=== PATIENT | male | born 1940 | race Caucasian/White ===

== ENCOUNTER 2021-01-24 18:50 | Inpatient (IN) | payer MEDICARE ==
[~2021-01-24 18:50] MED LIST: ASPIRIN81 MG PO; CRESTOR10 MG PO; FAMOTIDINE20 MG PO; IMDUR ER TAB 6060 MG PO; JANUVIA100 MG PO; JANUVIA50 MG PO; LEVEMIR100 UNIT/1 SC; LEVEMIR100 UNIT/1 SQ; LOPRESSOR 25 MG25 MG PO; LOPRESSOR 50 MG50 MG PO; NORVASC 5 MG TAB5 MG PO; PLAVIX 75 MG TA75 MG PO; SODIUM BICARBO650 M1 PO; TRAMADOL HCL50 MG PO; ZOFRAN ODT 4 MG4 MG PO
[2021-01-24 19:20] LABS: HEMOGLOBIN 14.1 gm/dl (14.0-17.5); RED BLOOD COUNT 4.79 M/UL (4.20-5.50); WHITE BLOOD COUNT 8.8 K/UL (4.5-11.0)
== END 2021-01-24 21:20 | disposition expired ==
LOC: ER1 18:50 → CDU 19:06
PROVIDERS: ADMIT Internal Medicine Cardiovascular Disease
PROC: 0BH17EZ Insertion of Endotracheal Airway into Trachea, Via Natural or Artificial Opening (ICD-10-PCS; principal; 2021-01-24)
PROC: 4A023N7 Measurement of Cardiac Sampling and Pressure, Left Heart, Percutaneous Approach (ICD-10-PCS; 2021-01-24)
PROC: B2111ZZ Fluoroscopy of Multiple Coronary Arteries using Low Osmolar Contrast (ICD-10-PCS; 2021-01-24)
PROC: 5A2204Z Restoration of Cardiac Rhythm, Single (ICD-10-PCS; 2021-01-24)
PROC: 5A1935Z Respiratory Ventilation, Less than 24 Consecutive Hours (ICD-10-PCS; 2021-01-24)
PROC: 3E033XZ Introduction of Vasopressor into Peripheral Vein, Percutaneous Approach (ICD-10-PCS; 2021-01-24)
DX: I21.09 ST elevation (STEMI) myocardial infarction involving other coronary artery of anterior wall (principal); J96.01 Acute respiratory failure with hypoxia; I50.21 Acute systolic (congestive) heart failure; I47.2 Ventricular tachycardia; N17.9 Acute kidney failure, unspecified; I46.2 Cardiac arrest due to underlying cardiac condition; R57.0 Cardiogenic shock; Z20.822 Contact with and (suspected) exposure to COVID-19; I11.0 Hypertensive heart disease with heart failure; E11.51 Type 2 diabetes mellitus with diabetic peripheral angiopathy without gangrene; I25.10 Atherosclerotic heart disease of native coronary artery without angina pectoris; R54 Age-related physical debility; F17.220 Nicotine dependence, chewing tobacco, uncomplicated; Z88.6 Allergy status to analgesic agent; J98.4 Other disorders of lung; Z89.611 Acquired absence of right leg above knee; Z79.4 Long term (current) use of insulin; Z79.82 Long term (current) use of aspirin; Z79.01 Long term (current) use of anticoagulants; Z90.49 Acquired absence of other specified parts of digestive tract
CPT/HCPCS: 31500; 71045; 80053; 82550; 82553; 82962; 83874; 84484; 85025; 85610; 85730; 93005; 94002; 99285; C1769; C1894; J0171; J0282; J0461; J1265; J1644; J2250; J2370; J2405; J3010; J7040; J7070; Q9965; U0002